=== PATIENT | male | born 1960 | race Two or more races ===

== ENCOUNTER 2020-07-09 12:01 | Emergency (ER) | payer OTHER ==
[~2020-07-09] VITALS: Ht 160 cm; Wt 54.4 kg
[~2020-07-09 12:01] MED LIST: ASPI-543 PO; BRIM0.159 OP; CEPH-37 PO; GLIP10TA9 PO; HYDR25TA4 PO; INSU1INJ19 SC; LATA0.0019 EACHEYE; SITA50TA28 PO
[2020-07-09] MEDS ORDERED: HYDROcodone-ACET 7.5/325MG TAB PO ONE (13:00)
[2020-07-09 14:30] VITALS: BP 163/80
== END 2020-07-09 14:47 | disposition home or self-care (01) ==
LOC: ER 12:01
DX: M79.602 Pain in left arm (principal); E11.9 Type 2 diabetes mellitus without complications; E78.5 Hyperlipidemia, unspecified; I10 Essential (primary) hypertension; Z90.49 Acquired absence of other specified parts of digestive tract
CPT/HCPCS: 93971

== ENCOUNTER 2025-03-30 10:30 | Emergency (ER) | payer OTHER ==
[~2025-03-30] VITALS: Ht 160 cm; Wt 62.2 kg
[~2025-03-30 10:30] MED LIST changes: -LATA0.0019 EACHEYE; +LATA0.008 EACHEYE
[2025-03-30] MEDS: FLUORESCEIN SOD OPTH TEST STRIP EACHEYE ONE (11:00)
[2025-03-30] MEDS: TETRACAINE HCL 0.5% OPTH(EYE) SOLN 4ML EACHEYE ONE (11:00)
--- NOTE | 2025-03-30 11:21 | ED.PDOC ---
Eye-HPI HPI Comments 64y M with hx of glaucoma presents to the ED for chief complaint of eye pain. Pt states he has bee having R eye pain since Friday, 4 days prior. Pt states he has been having blurry vision in R eye and states his vision is approximately 20% of normal. Pt states his pain is 5/10, constant, non-radiating with associated exacerbating factor of increased sensitivity to light and no relieving factors. Pt denies any associated symptoms. Pt states he does seen Leather Leveler for his eye history and is taking medications currently which he gets injections at clinic with upcoming appt at the end of March. Pt has noted history of age related macular degeneration and glaucoma. Pt denies any other symptoms at this time Chief Complaint: Eye Problem Time Seen by MD: 11:00 Primary Care Provider: YANCY Wall Notes: Nurses Notes, Medications, Allergies Allergies: Coded Allergies: NO KNOWN ALLERGIES (Unverified , 05/31/20) Home Meds Active Scripts Cephalexin (Keflex) 500 Mg Cap, 1 CAP PO BID for 7 Days, #14 CAP Prov:FERNANDEZ WAY MD 06/01/20 Reported Medications Brimonidine Tartrate (Brimonidine Tartrate) 0.15 % Chelsy, 1 DROP OP TID, DROP 06/01/20 Latanoprost (LATANOPROST) 0.005 % Chelsy, 1 DROP EACHEYE QPM, #7.5 ML 3 Refills 06/01/20 Insulin Glargine (Basaglar Kwikpen) 100 Unit/Ml Inj, 15 UNIT SC, INJ 06/01/20 Sitagliptin-Metformin Hcl (JANUMET XR) 1 Tab Tab, 1 TAB PO, TAB 06/01/20 Hydrochlorothiazide (Hydrochlorothiazide) 25 Mg Tab, 25 MG PO DAILY for 30 Days, MG 06/01/20 Aspirin (Aspir-Low) 81 Mg Tab, 81 MG PO DAILY for 30 Days, MG 06/01/20 Glipizide (Glipizide) 10 Mg Tab, 10 MG PO BID for 30 Days, MG 06/01/20 Information Source: Patient, Spouse Mode of Arrival: Ambulatory Past Medical History PAST MEDICAL HISTORY: DM, High Lipids, HTN Surgical History: Cholecystectomy Family History Family History: Family hx of HTN Social History Smoker: Non-Smoker Alcohol: Rarely Drugs: Denies Drug Use Lives In: Home All Other Systems: Reviewed and Negative (see HPI) Physical Exam General Appearance: No Apparent Distress, Normal HEENT: PERRL/EOMI, Photophobia, Other (unilateral conjunctival injection to R eye, no orbital edema or erythema noted, no fb.) Neck: Full Range of Motion, Non-Tender, Normal, Normal Inspection Respiratory: Chest Non-Tender, Lungs Clear, No Accessory Muscle Use, No Respiratory Distress, Normal Breath Sounds Cardiovascular: No Edema, No JVD, No Murmur, No Gallop, Normal Peripheral Pulses, Regular Rate/Rhythm Breast Exam: Deferred Gastrointestinal: No Organomegaly, Non Tender, No Pulsatile Mass, Normal Bowel Sounds, Soft Genitalia: Deferred Pelvic: Deferred Rectal: Deferred Extremities: No calf tenderness, Normal capillary refill, Normal inspection, Normal range of motion, Non-tender, No pedal edema Musculoskeletal : Apperance: Normal Neurologic: Alert, negotiator II-XII nml as Tested, No Motor Deficits, Normal Affect, Normal Mood, No Sensory Deficits Cerebellar Function: Normal Reflexes: Normal Skin: Dry, Normal Color, Warm Lymphatic: No Adenopathy Was a procedure done? Was a procedure done?: No EENT DIFF Eye: Conjunctivitis, Bacterial, Glaucoma, Iritis/Uveitis, Orbital Cellulits, Periorbital Cellulits X-Ray, Labs, Meds, VS Vital Signs Date Time Temp Pulse Resp B/P (MAP) Pulse Ox O2 Delivery O2 Flow Rate FiO2 03/30/25 10:35 98.2 68 17 117/81 (93) 99 98.2 X-Ray, Labs, Meds, VS Comment 64y M who presents to the ED for chief complaint of eye pain. Patient arrives alert and oriented, ABC's intact, afebrile, vital signs stable, saturating well in room air pt takes Dorzolamide, 1 drop 3x daily pt takes Brimonide, 1 drop 3x daily IOP in R eye: 33 IOP in L eye: 14 visual acuity in ED noted 20/70 Given PAINFUL vision loss I also considered Corneal Abrasion/Ulcer, Complex Migraine, Globe Rupture, Uveitis, Endopthalmitis, Orbital and Periorbital Cellulitis, Optic Neuritis. I spoke with Dr. Payne at 12:10 p.m.. Patient will be transferred to [facility] for further evaluation an ophthalmology consultation Time of 1ST Reevaluation: 12:09 Reevaluation 1ST: Unchanged Patient Education/Counseling: Diagnosis, Treatment Family Education/Counseling: Diagnosis, Treatment SEPSIS Sepsis Screen Physician Orders Dias Lamp (03/30/25 ) Visual Acuity (03/30/25 10:51) Imaging Transfer Request (03/30/25 12:16) Vital Signs Date Time Temp Pulse Resp B/P (MAP) Pulse Ox O2 Delivery O2 Flow Rate FiO2 03/30/25 10:35 98.2 68 17 117/81 (93) 99 98.2 Departure 1 Departure Time of Disposition: 13:44 Impression: Primary Impression: Glaucoma Qualified Codes: H40.9 - Unspecified glaucoma Disposition: 51 HOSPICE/MEDICAL FACILITY Condition: Serious Critical Care Note Critical Care Time?: No Stability Stability form required: No Heart Score Heart Score: Heart Score Response (Comments) Value History N/A 0 EKG N/A 0 Age N/A 0 Risk Factors N/A 0 Troponin N/A 0 Total 0 I personally scribed for FAMILIA GREENBERG NP ([email or web address]) on 03/30/25 at 11:21. Electronically submitted by Chito Billings ([email or web address]). FAMILIA GREENBERG NP Mar 30, 2025 11:21
[2025-03-30 17:43] VITALS: BP 145/75; PULSE 82; RESP 18; TEMP 99.1; O2SAT 99
== END 2025-03-30 13:28 | disposition short-term general hospital (02) ==
LOC: ER 10:30
DX: H40.9 Unspecified glaucoma (principal); I10 Essential (primary) hypertension; E11.9 Type 2 diabetes mellitus without complications; E78.5 Hyperlipidemia, unspecified; Z79.82 Long term (current) use of aspirin; Z79.84 Long term (current) use of oral hypoglycemic drugs; Z79.899 Other long term (current) drug therapy; Z90.49 Acquired absence of other specified parts of digestive tract